=== PATIENT | female | born 1980 | race Hispanic/Latino ===

== ENCOUNTER 2021-12-22 11:59 | Emergency (ER) | payer OTHER ==
[~2021-12-22] VITALS: Ht 162.6 cm; Wt 81.6 kg
[2021-12-22 12:06] VITALS: BP 109/69
== END 2021-12-22 12:57 | disposition home or self-care (01) ==
LOC: EDH 11:59
DX: Z02.89 Encounter for other administrative examinations (principal); M32.9 Systemic lupus erythematosus, unspecified; Z88.2 Allergy status to sulfonamides; Z98.890 Other specified postprocedural states